=== PATIENT | male | born 1965 | race African-American/Black ===

== ENCOUNTER 2017-02-07 19:54 | Emergency (ER) | payer OTHER ==
[~2017-02-07] VITALS: Ht 170.2 cm; Wt 83.0 kg
[2017-02-07] MEDS ORDERED: TETANUS, DIPHTHERIA, PERTUSSIS VAC/PF 0.5ML (>7YR OLD) IM ONE (23:45)
[2017-02-07] MEDS ORDERED: LIDOCAINE HCL 1% 20ML VIAL (Pyxis) INJ MC ONE (23:45)
[2017-02-07] MEDS ORDERED: BACITRACIN ZINC OINT UDPKT TOP ONE (23:45)
[2017-02-08] MEDS ORDERED: CEPHALEXIN 500MG CAPSULE PO ONE (00:15)
[2017-02-08] MEDS ORDERED: LIDOCAINE HCL 1% 20ML VIAL (Pyxis) INJ MC ONE (00:15)
[2017-02-08] MEDS ORDERED: BACITRACIN ZINC OINT UDPKT TOP ONE (00:15)
[2017-02-08] MEDS ORDERED: IBUPROFEN 600MG TABLET PO ONE (00:30)
[2017-02-08 01:15] VITALS: BP 135/74
== END 2017-02-08 02:10 | disposition home or self-care (01) ==
LOC: ER 19:54
DX: S61.011A Laceration without foreign body of right thumb without damage to nail, initial encounter (principal); E11.9 Type 2 diabetes mellitus without complications; F17.200 Nicotine dependence, unspecified, uncomplicated; W45.8XXA Other foreign body or object entering through skin, initial encounter; Y93.89 Activity, other specified; Y92.89 Other specified places as the place of occurrence of the external cause; Y99.8 Other external cause status
CPT/HCPCS: 12001; 73130; 90471; 90715; 99284; J3490; Z7610

== ENCOUNTER 2024-10-26 18:53 | Emergency (ER) | payer OTHER ==
[~2024-10-26] VITALS: Ht 175.3 cm; Wt 80.0 kg
[2024-10-26 18:55] VITALS: BP 117/74; PULSE 97; RESP 18; TEMP 36.7; O2SAT 97
== END 2024-10-26 20:26 ==
LOC: ER 18:53
DX: F10.129 Alcohol abuse with intoxication, unspecified (principal); E11.9 Type 2 diabetes mellitus without complications; Y90.9 Presence of alcohol in blood, level not specified
CPT/HCPCS: 99283